=== PATIENT | female | born 1995 | race African-American/Black ===

== ENCOUNTER 2024-04-17 19:03 | Emergency (ER) | payer OTHER, SELFPAY ==
[2024-04-17 19:05] VITALS: BP 136/100
--- NOTE | 2024-04-17 20:56 | ED.GENMED ---
History of Present Illness
General
Chief Complaint: Cough
Source: patient
Exam Limitations: none
Time Seen by Provider: 04/17/24 19:41
Nursing documentation reviewed up to this point in time: agreed with
History of Present Illness
History of Present Illness:
Patient to ED with complaint of sudden onset of chest heaviness. Symptoms started this AM and continue. Denies fever/chills, recent illness. No prior history of same. Brought self to ED for eval.
Past History
Past History
ED Past Medical History: None
Review of Systems
Review of Systems
Allergies reviewed?: Yes
All Other Systems: ROS reviewed and negative except as documented in HPI and ROS
Constitutional: Reports no symptoms
EENT: Reports no symptoms
Respiratory: Reports trouble breathing
Cardiac: Reports other (Chest heaviness)
ABD/GI: Reports no symptoms
: Reports no symptoms
Musculoskeletal: Reports no symptoms
Skin: Reports no symptoms
Neurological: Reports no symptoms
Psychiatric: Reports no symptoms
Phy Exam
General Physical Exam
General Presentation: well appearing and mild distress
General age: appears stated age
General Skin: warm and dry
General Habitus: normal
General Mental: alert
Cardiovascular Exam
Cardiovascular Exam: tachycardia
Pulmonary Exam
Pulmonary Exam: lungs clear, no respiratory distress and chest non tender
Musculoskeletal Exam
Musculoskeletal Exam: full ROM and neuro vasc intact
Skin Exam
Skin Exam: normal color, warm/dry and no rash
Psychiatric Exam
Psychiatric Exam: normal mood/affect
Course
Orders/Labs/Results
Orders:
Orders
04/17/24 19:05
Electrocardiogram (*1) Urgent
Reason for Study: Chest Pain
EKG- Treatment ONCE
04/17/24 19:09
Chest [CR Chest - 2 Views ] Urgent
Comment:
Reason For Exam: COUGH, WHEEZING
04/17/24 21:10
Complete Blood Count/With Diff Urgent
Comprehensive Metabolic Panel Urgent
D-Dimer Urgent
Troponin I Urgent
04/17/24 21:53
Ipratropium/Albuterol Sulfate [Duoneb] 3 ml INH R NOW STA
04/17/24 22:55
Acetaminophen [Tylenol] 1,000 mg PO NOW STA
04/17/24 23:54
0.9% Sodium Chloride 1000 ml [Nss] 1,000 ml IV BOLUS
Abnormal Lab Results
04/17/24
21:10
Absolute Neuts (auto) 8.5 H 10^3/uL
(1.4-6.5)
Absolute Lymphs (auto) 1.1 L 10^3/uL
(1.2-3.4)
Neutrophils % 83.0 H %
(42.2-75.2)
Lymphocytes % 11.2 L %
(20.5-51.1)
Glucose 103 H mg/dl
(70-99)
04/17/24 21:10
04/17/24 21:10
Vital Signs
Initial and Last Documented VS:
Initial Vital Signs
Temp Pulse Resp BP Pulse Ox
98.7 F 120 20 136/100 100
04/17/24 19:05 04/17/24 19:05 04/17/24 19:05 04/17/24 19:05 04/17/24 19:05
Last Documented Vital Signs
Temp Pulse Resp BP Pulse Ox
100.4 F H 136 26 133/87 99
04/17/24 23:10 04/17/24 23:10 04/17/24 23:10 04/17/24 23:10 04/17/24 23:10
ED Attending Note
-
Portions of this chart may have been created with voice recognition software.� Occasional wrong word or��sound alike� substitutions may have occurred due to the inherent limitations of voice recognition software.
Discharge Plan
Departure
Patient with high blood pressure during this ER visit?: No
Condition: Good
Covid-19: Not Applicable
Discharge Problem:
Chest pain
Instructions: Chest pain in adults - ED discharge instructions, Chest Pain PCP Follow Up
Prescriptions:
No Action
No Current Medications
0
Referrals:
UNKNOWN - PT DOES,NOT KNOW [Unknown Provider] -
Activity Restrictions/Additional Instructions:
Return to the emergency department immediately for any changes in/worsening of your symptoms.
Interventions
Interventions:
*Risk Screen - Suicide Last Done: 04/17/24 19:05
*General Assessment Last Done: 04/17/24 19:42
*Neglect/Abuse Screening Last Done: 04/17/24 19:05
*ED COVID-19 Vaccine History Last Done: 04/17/24 19:42
ED- Pulmonary Assessment Last Done: 04/17/24 19:42
Discharge Date and Time
Print Language: THAI
[2024-04-17 21:16] LABS: % Basophils 0.4 % (0-2); % Eosinophils 0.5 % (0-6); % Immature Granulocytes 0.3 % (0-0.5); % Lymphocytes 11.2 % (20.5-51.1); % Monocytes 4.6 % (1.7-9.3); Absolute Eosinophils 0.1 10^3/uL (0-0.7); Absolute Lymphocytes 1.1 10^3/uL (1.2-3.4); Absolute Monocytes 0.5 10^3/uL (0.1-0.6); Absolute Neutrophils 8.5 10^3/uL (1.4-6.5); Hematocrit 41.4 % (37.0-47.0); Hemoglobin 13.8 g/dL (12.0-16.0); Mean Corp Hgb Conc. 33.3 g/dL (33.0-37.0); Mean Corpuscular Hgb 29.7 pg (27.0-31.0); Mean Platelet Volume 9.2 fL (7.4-10.4); Nucleated Red Blood Cells % 0 %; Platelet Count 283 10^3/uL (130-400); Red Blood Cell Count 4.65 10^6/uL (4.20-5.40); Red Cell Dist. Width 11.9 % (11.5-14.5); White Blood Cell Count 10.2 10^3/uL (4.8-10.8)
[2024-04-17 21:28] LABS: D-Dimer 0.38 ug/mlFEU (0.00-0.50)
[2024-04-17 21:33] LABS: ALT (SGPT) 18 U/L (0-35); AST (SGOT) 24 U/L (14-36); Albumin 4.9 g/dl (3.5-5.0); Alkaline Phosphatase 69 U/L (38-126); Blood Urea Nitrogen 14 mg/dl (7-17); Calcium 9.6 mg/dl (8.4-10.2); Carbon Dioxide 26 mmol/L (22-30); Chloride 101 mmol/L (98-107); Glucose 103 mg/dl (70-99); Potassium 4.1 mmol/L (3.5-5.1); Sodium 139 mmol/L (135-145); Total Bilirubin 0.4 mg/dl (0.2-1.3); Total Protein 7.7 g/dl (6.3-8.2); eGFR > 60.00
[2024-04-17 21:43] LABS: Troponin I 0.015 ng/ml
[2024-04-17] MEDS: DUONEB 3 ML INH (21:57)
[2024-04-17] MEDS: TYLENOL 1000 MG PO (23:03)
[2024-04-17 23:10] VITALS: BP 133/87
[2024-04-17] MEDS: NSS 1000 IV (23:55)
[2024-04-18 00:18] VITALS: BP 130/82
[2024-04-18] MEDS: NSS 1000 IV (00:32)
[2024-04-18 01:11] VITALS: BP 112/70
[2024-04-18 02:07] VITALS: BP 122/75
== END 2024-04-18 02:33 | disposition home or self-care (01) ==
LOC: EMR 19:03
PROVIDERS: Nurse Practitioner; EMERGENCY PHYSICIAN Student in an Organized Health Care Education/Training Program; FAMILY PHYSICIAN Nurse Practitioner Family
DX: R07.89 Other chest pain (principal); R05.9 Cough, unspecified; R06.2 Wheezing
CPT/HCPCS: 94640; 96361; 96360; 99285; 71046; 80053; 84484; 85025; 85379; 93005